=== PATIENT | male | born 1960 | race Caucasian/White ===

== ENCOUNTER 2017-02-18 07:11 | Outpatient (CLI) | payer OTHER ==
--- NOTE | 2017-02-18 10:30 | DIAGNOSTIC IMAGING REPORT ---
PROCEDURE: MRA HEAD WITHOUT CONTRAST INDICATION: LT THALAMIC Infarction/O LESION TECHNIQUE: Multiplanar multisequence MRI imaging of the brain without contrast. COMPARISON: None. FINDINGS: The anterior middle and posterior cerebral arteries are normal. The cavernous, supraclinoid carotid and distal basilar arteries are normal. There is no evidence of aneurysm, vascular malformation, tumor stain or vascularity. There is no atherosclerotic disease, vasospasm, vasculitis. IMPRESSION: 1. Normal MRA of the brain.
--- NOTE | 2017-02-18 12:44 | DIAGNOSTIC IMAGING REPORT ---
PROCEDURE: MRA NECK W/WO CONTRAST INDICATION: LT THALAMIC Infarction/O LESION TECHNIQUE: Multiplanar multisequence MRI imaging of the brain without contrast. Post administration of 20 ml ProHance gadolinium based IV contrast, three plane T1 fat sat sequences were obtained. COMPARISON: Carotid ultrasound dated 02/29/2016 FINDINGS: The right carotid bifurcation is normal other than minimal plaque at the origin of the external carotid artery. The left carotid bifurcation is normal. The common carotids and cervical carotid arteries are normal as well. The external carotids are grossly normal with no evidence of vasculitis. The vertebral arteries are normal without evidence of atherosclerotic disease or fibromuscular dysplasia. The right vertebral is dominant. IMPRESSION: 1. Normal bifurcations other than minimal plaque at the origin of the right external carotid artery. 2. Normal vertebral arteries.
== END 2017-02-18 23:00 ==
LOC: MRI SRH 07:11
DX: I69.90 Unspecified sequelae of unspecified cerebrovascular disease (principal)
CPT/HCPCS: 90074; 91631; 92560